=== PATIENT | female | born 1955 | race Caucasian/White ===

== ENCOUNTER → 2019-01-29 | Outpatient (REF) | payer BC | LOC: M LAB LCGH 11:26 | DX: Z12.4 Encounter for screening for malignant neoplasm of cervix (principal); N88.8 Other specified noninflammatory disorders of cervix uteri ==

== ENCOUNTER → 2019-07-02 | Outpatient (CLI) | payer MEDICARE | LOC: M LABSMTC 10:40 | PROVIDERS: ATTEND Family Medicine | DX: Z03.818 Encounter for observation for suspected exposure to other biological agents ruled out (principal); Z11.59 Encounter for screening for other viral diseases; Z20.828 Contact with and (suspected) exposure to other viral communicable diseases | CPT/HCPCS: C9803; U0003 ==